=== PATIENT | male | born 1965 | race Caucasian/White ===

== ENCOUNTER → 2025-01-12 16:20 | Outpatient (REF) | payer OTHER, SELFPAY | LOC: MRI 3T 16:20 | PROVIDERS: ATTENDING PHYSICIAN Family Medicine | DX: R51.9 Headache, unspecified (principal); R29.818 Other symptoms and signs involving the nervous system; R43.9 Unspecified disturbances of smell and taste | CPT/HCPCS: 70553; A9575 ==